=== PATIENT | female | born 2000 | race Caucasian/White ===

== ENCOUNTER 2022-05-23 19:46 | Emergency (ER) | payer OTHER ==
[~2022-05-23] VITALS: Ht 160 cm; Wt 91.2 kg
[2022-05-23 20:16] VITALS: BP 123/65
--- NOTE | 2022-05-23 20:20 | NUR ---
PT TAKEN TO BED 2 Addendum: 05/23/22 at 2020 by MARISAO BED 3
[2022-05-23] MEDS ORDERED: ALBUTEROL SULFATE/IPRATROPIU 3 ML SOL IH ONE (20:40)
[2022-05-23] MEDS ORDERED: predniSONE 20 MG TAB PO ONE (20:40)
--- NOTE | 2022-05-23 20:50 | NUR ---
X-Ray at bedside.
--- NOTE | 2022-05-23 20:50 | NUR ---
Respiratory Therapist at bedside for respiratory intervention.
--- NOTE | 2022-05-23 20:50 | NUR ---
Dr. Cooley examining patient.
[2022-05-23] MEDS ORDERED: PRED20TA5 PO (22:25)
[2022-05-23 22:35] VITALS: BP 122/62
== END 2022-05-23 22:35 | disposition home or self-care (01) ==
LOC: MED 19:46
DX: J45.909 Unspecified asthma, uncomplicated (principal); Z79.899 Other long term (current) drug therapy
CPT/HCPCS: 71045; 94640; 99283; J7512; Q0092